=== PATIENT | male | born 1990 | race Caucasian/White ===

== ENCOUNTER 2020-10-28 20:30 | Emergency (ER) | payer SELFPAY ==
[~2020-10-28] VITALS: Ht 170.2 cm; Wt 70.9 kg
--- NOTE | 2020-10-28 21:22 | REPVR ---
PROCEDURE INFORMATION: Exam: XR Left Finger(s) Exam date and time: 10/28/2020 8:58 PM Age: 30 years old Clinical indication: Pain; Finger(s); Left; Additional info: Dropped a heavy rock on it, pain to thumb TECHNIQUE: Imaging protocol: XR Left fingers. Views: Minimum 2 views. COMPARISON: No relevant prior studies available. FINDINGS: Bones/joints: Nondisplaced fracture at the base of the distal phalanx of the thumb. Soft tissues: Soft tissue edema thumb. Other findings: Otherwise unremarkable. IMPRESSION: 1. Nondisplaced fracture at the base of the distal phalanx of the thumb. 2. Soft tissue edema thumb. Electronically signed by: Bharat Lilly On 10/28/2020 21:22:06 PM
[2020-10-28] MEDS ORDERED: ACETAMINOPHEN 500 MG TAB PO ONE (22:10)
[2020-10-28 22:13] VITALS: BP 114/65
== END 2020-10-28 22:11 | disposition home or self-care (01) ==
LOC: M ED 20:30
DX: S62.515A Nondisplaced fracture of proximal phalanx of left thumb, initial encounter for closed fracture (principal); S60.112A Contusion of left thumb with damage to nail, initial encounter; W23.0XXA Caught, crushed, jammed, or pinched between moving objects, initial encounter; Y92.89 Other specified places as the place of occurrence of the external cause